=== PATIENT | male | born 1995 | race Two or more races ===

== ENCOUNTER 2017-11-21 23:25 | Emergency (ER) | payer OTHER ==
[~2017-11-21] VITALS: Ht 167.6 cm; Wt 61.2 kg
[2017-11-21] MEDS ORDERED: LEXAPRO5 MG PO (23:40)
== END 2017-11-22 00:46 | disposition home or self-care (01) ==
LOC: ER 23:25
DX: H57.8 Other specified disorders of eye and adnexa (principal)